=== PATIENT | male | born 1990 | race Caucasian/White ===

== ENCOUNTER 2016-03-03 21:33 | Emergency (ER) | payer OTHER ==
[2016-03-03 21:51] VITALS: BP 132/77; PULSE 73; TEMP 98.9; BMI 25.4
[2016-03-03] MEDS ORDERED: IBUPROFEN 400 MG TABLET (FP) PO ONE ×2 (23:01→23:34)
[2016-03-03] MEDS ORDERED: METHOCARBAMOL 500 MG TABLET PO ONE (23:01)
[2016-03-03] MEDS ORDERED: OXYCODONE/APAP 5/325MG COMBO TABLET PO ONE (23:01)
--- NOTE | 2016-03-03 23:09 | PDOC ---
*Physical Exam - Vital Signs Last Vital Signs Temp Pulse Resp BP Pulse Ox 98.9 F 73 16 132/77 99 03/03/16 21:47 03/03/16 21:47 03/03/16 21:47 03/03/16 21:47 03/03/16 21:47 Medical Decision Making - Medical Decision Making 03/03/16 23:09 agree with care from ROBYN Max *DC/Admit/Observation/Transfer Diagnosis at time of Disposition: Musculoskeletal chest pain - Discharge Dispostion Disposition: HOME - Prescriptions Prescriptions: Ibuprofen [Motrin -] 600 mg PO Q6H PRN #20 tablet PRN Reason: Mild Pain Oxycodone HCl/Acetaminophen [Percocet 10-325 mg Tablet] 1 each PO Q6H PRN #16 tablet MDD 4 tabs PRN Reason: Severe Pain Methocarbamol [Robaxin -] 500 mg PO Q6H PRN #20 tablet PRN Reason: Pain - Referrals Referrals: Edwin Quiles MD [Staff Physician] - - Patient Instructions Printed Discharge Instructions: DI for Musculoskeletal Pain Additional Instructions: FOLLOW UP WITH DR. QUILES. CALL TO SCHEDULE APPOINTMENT. TAKE MEDICATIONS PRESCRIBED. DO NOT DRIVE, DRINK ALCOHOL, OR OPERATE HEAVY MACHINERY WHILE TAKING PERCOCET. APPLY COLD COMPRESS TO AFFECTED AREA EVERY 2-4 HOURS FOR 10-20 MIN NEEDED FOR PAIN. KEEP ARM IN SLING UNTIL SEEN BY SPECIALIST. Print Language: FILIPINO - Post Discharge Activity Work/School Note: Back to Work
[2016-03-03] MEDS ORDERED: METHOCARBAMOL 500 MG TABLET ONE (23:34)
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
== END 2016-03-04 01:12 | disposition home or self-care (01) ==
LOC: JER 21:33
DX: R07.89 Other chest pain (principal); X50.0XXA Overexertion from strenuous movement or load, initial encounter; Y93.89 Activity, other specified; Y92.89 Other specified places as the place of occurrence of the external cause; Y99.0 Civilian activity done for income or pay
CPT/HCPCS: 71020-TC; 99282-25

== ENCOUNTER 2017-04-02 13:59 | Emergency (ER) | payer OTHER ==
[2017-04-02 14:11] VITALS: BP 103/65; PULSE 72; TEMP 98.2; BMI 24.4
[2017-04-02] MEDS ORDERED: IBUPROFEN 600 MG TABLET (FP) PO ONE ×2 (15:00→15:05)
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
== END 2017-04-02 15:08 | disposition home or self-care (01) ==
LOC: JERFT 13:59 → JER 13:59
DX: S46.012A Strain of muscle(s) and tendon(s) of the rotator cuff of left shoulder, initial encounter (principal); X50.0XXA Overexertion from strenuous movement or load, initial encounter; Y93.89 Activity, other specified; Y92.89 Other specified places as the place of occurrence of the external cause; Y99.0 Civilian activity done for income or pay
CPT/HCPCS: 99283-25